=== PATIENT | male | born 1995 | race Asian ===

== ENCOUNTER 2018-04-05 04:46 | Emergency (ER) | payer SELFPAY ==
--- NOTE | 2018-04-05 05:28 | ED Physician Chart ---
ED Chief Complaint/HPI - Patient Information Date Seen:: 04/05/18 Time Seen:: 05:21 Chief Complaint:: puncture wound lt clavicular area abrasion scalp after fall History of Present Illness:: 22 yr old male while drinking glass cup fell on chest with puncture lt upper chest and fell backwardss no loc no visual signs no numbness or tinging no n,v Allergies:: Allergies Allergy/AdvReac Type Severity Reaction Status Date / Time No Known Allergies Allergy Verified 04/05/18 05:00 Vitals:: Vital Signs - 8 hr 04/05/18 05:01 Temp 99.0 F HR 92 RR 17 BP 135/76 O2 Sat % 98 ED Review of Systems - Review of Systems Skin: Skin lesions Family Medical History - Family Member Mother Ethnicity: Non- ED Physical Exam - Physical Examination General/Constitutional: Well-developed, well-nourished Other Head comments:: abrasions post scalp Eyes: Lids, conjuctiva normal Skin: No rash ENMT: External ears, nose nl Other Neck comments:: small puncture wound lt neck 1.5 cm wound cleaned with betadyne and wound closed with 3 annemarie Respiratory: Nl effort/Exclusion Cardio Vascular: RRR GI: No tenderness/rebounding/guarding : No CVA tenderness Extremities: No tenderness or effusion Neuro/Psych: Alert/oriented, Judgement/insight normal ED Septic Shock - . Is Septic Shock (SBP<90, OR Lactate>4 mmol\L) present?: No - <6hrs of presentation: Vital Signs: Vital Signs - 8 hr 04/05/18 05:01 Temp 99.0 F HR 92 RR 17 BP 135/76 O2 Sat % 98 ED Reassessment (Disposition) - Reassessment Reassessment Condition:: Improved - Diagnosis Diagnosis:: etoh fall abrasion mild headatruma and laceration lt neck s/p annemarie - Aftercare/Follow up Instructions Aftercare/Follow-Up Instructions:: Counseled pt regarding lab results/diagnosis & need follow up Notes:: head injury instructions - Patient Disposition Discharge/Transfer:: Home Condition at Disposition:: Stable
== END 2018-04-05 05:45 | disposition home or self-care (01) ==
LOC: ER 04:46
DX: S11.91XA Laceration without foreign body of unspecified part of neck, initial encounter (principal); S09.90XA Unspecified injury of head, initial encounter; S00.01XA Abrasion of scalp, initial encounter; W20.8XXA Other cause of strike by thrown, projected or falling object, initial encounter; Y93.89 Activity, other specified; Y92.89 Other specified places as the place of occurrence of the external cause; Y99.8 Other external cause status
CPT/HCPCS: 12001; Z7502

== ENCOUNTER 2018-04-13 16:17 | Emergency (ER) | payer BC ==
--- NOTE | 2018-04-13 16:53 | ED Physician Chart ---
ED Chief Complaint/HPI - Patient Information Date Seen:: 04/13/18 Time Seen:: 16:48 Chief Complaint:: staple removal History of Present Illness:: 22 yr old male here for staple removal lt neck 10 days ago no complaints wound healing well Allergies:: Allergies Allergy/AdvReac Type Severity Reaction Status Date / Time No Known Allergies Allergy Verified 04/13/18 16:30 Vitals:: Vital Signs - 8 hr 04/13/18 16:17 Temp 97.0 F HR 79 RR 16 BP 134/77 O2 Sat % 95 ED Review of Systems - Review of Systems General/Constitutional: No fever, No chills, No weight loss, No weakness, No diaphoresis, No edema, No loss of appetite Skin: No skin lesions, No rash, No bruising Head: No headache, No light-headedness Eyes: No loss of vision, No pain, No diplopia ENT: No earache, No nasal drainage, No sore throat, No tinnitus Neck: No neck pain, No swelling, No thyromegaly, No stiffness, No mass noted Cardio Vascular: No chest pain, No palpitations, No PND, No orthopnea, No edema Pulmonary: No SOB, No cough, No sputum, No wheezing GI: No nausea, No vomiting, No diarrhea, No pain, No melena, No hematochezia, No constipation, No hematemesis G/U: No dysuria, No frequency, No hematuria Musculoskeletal: No bone or joint pain, No back pain, No muscle pain Endocrine: No polyuria, No polydipsia Psychiatric: No prior psych history, No depression, No anxiety, No suicidal ideation Hematopoietic: No bruising, No lymphadenopathy Allergic/Immuno: No urticaria, No angioedema Neurological: No syncope, No focal symptoms, No weakness, No paresthesia, No headache, No seizure, No dizziness, No confusion, No vertigo ED Past Medical History - Past Medical History Past Medical History: No significant medical hx Family Medical History - Family Member Mother History Unknown: Yes Ethnicity: Non- ED Physical Exam - Physical Examination General/Constitutional: Awake, Well-developed, well-nourished, Alert, No distress, GCS 15, Non-toxic appearing, Ambulatory Head: Atraumatic Eyes: Lids, conjuctiva normal, PERRL, EOMI Skin: Nl inspection, No rash, No skin lesions, No ecchymosis, Well hydrated, No lymphadenopathy ENMT: External ears, nose nl, Nasal exam nl, Lips, teeth, gums nl Neck: Nontender, Full ROM w/o pain, No JVD, No nuchal rigidity, No bruit, No mass, No stridor Respiratory: Nl effort/Exclusion, Clear to Auscultation, No Wheeze/Rhonchi/Rales Cardio Vascular: RRR, No murmur, gallop, rubs, NL S1 S2 GI: No tenderness/rebounding/guarding, No organomegaly, No hernia, Normal BS's, Nondistended, No mass/bruits, No McBurney tenderness : No CVA tenderness Extremities: No tenderness or effusion, Full ROM, normal strength in all extremities, No edema, Normal digits & nails Neuro/Psych: Alert/oriented, DTR's symmetric, Normal sensory exam, Normal motor strength, Judgement/insight normal, Mood normal, Normal gait, No focal deficits Misc: Normal back, No paraspinal tenderness ED Assessment - Assessment General Assessment: staple removal neck wound ED Septic Shock - . Is Septic Shock (SBP<90, OR Lactate>4 mmol\L) present?: No - <6hrs of presentation: Vital Signs: Vital Signs - 8 hr 04/13/ 16:17 Temp 97.0 F HR 79 RR 16 BP 134/77 O2 Sat % 95 ED Reassessment (Disposition) - Reassessment Reassessment Condition:: Improved - Diagnosis Diagnosis:: staple removal times three lt neck - Aftercare/Follow up Instructions Aftercare/Follow-Up Instructions:: Counseled pt regarding lab results/diagnosis & need follow up - Patient Disposition Discharge/Transfer:: Home Condition at Disposition:: Stable
== END 2018-04-13 16:53 | disposition home or self-care (01) ==
LOC: ER 16:17
DX: S10.9 Superficial injury of unspecified part of neck (principal); X58.XXXD Exposure to other specified factors, subsequent encounter
CPT/HCPCS: Z7502